=== PATIENT | male | born 1985 | race African-American/Black ===

== ENCOUNTER 2017-04-14 17:36 | Emergency (ER) | payer OTHER ==
[~2017-04-14] VITALS: Ht 177.8 cm; Wt 63.5 kg
== END 2017-04-14 20:22 | disposition home or self-care (01) ==
LOC: ER 17:36
DX: S60.465A Insect bite (nonvenomous) of left ring finger, initial encounter (principal); W57.XXXA Bitten or stung by nonvenomous insect and other nonvenomous arthropods, initial encounter; Y93.89 Activity, other specified; Y92.89 Other specified places as the place of occurrence of the external cause; Y99.8 Other external cause status

== ENCOUNTER 2018-07-21 16:17 | Emergency (ER) | payer OTHER ==
[2018-07-21 16:17] VITALS: BP 121/75
== END 2018-07-21 19:55 | disposition home or self-care (01) ==
LOC: ER 16:17
DX: Z53.21 Procedure and treatment not carried out due to patient leaving prior to being seen by health care provider (principal)